=== PATIENT | male | born 1985 | race Caucasian/White ===

== ENCOUNTER 2019-09-19 11:25 | Emergency (ER) | payer OTHER ==
[~2019-09-19] VITALS: Ht 175.3 cm; Wt 86.3 kg
[2019-09-19] MEDS ORDERED: TETRACYCLINE H500 MG PO (11:39)
[2019-09-19] MEDS ORDERED: FLAGYL500 M1 PO (11:39)
[2019-09-19] MEDS ORDERED: OMEPRAZOLE40 MG PO (11:39)
[2019-09-19 12:16] LABS: ABSOLUTE BASOPHILS 0.1 thou/uL (0.0-0.2); ABSOLUTE EOSINOPHILS 0.3 thou/uL (0.0-0.7); ABSOLUTE LYMPHOCYTES 1.7 thou/uL (0.8-5.3); ABSOLUTE MONOCYTES 0.4 thou/uL (0.0-1.2); ABSOLUTE NEUTROPHILS 5.7 thou/uL (1.6-8.1); BASOPHILS 1.2 %; EOSINOPHILS 3.3 %; HEMATOCRIT 39.3 % (42.0-52.0); HEMOGLOBIN 13.7 gm/dL (14.0-18.0); MCH 29.8 pg (26.0-34.0); MCHC 34.8 g/dL (28.0-37.0); MCV 85.6 fL (80.0-100.0); MONOCYTES 4.5 %; MPV 6.9 fl. (7.2-11.1); NUCLEATED RBCS 0 /100WBC; PLATELET COUNT* 296 thou/uL (150-400); RBC 4.59 mil/uL (4.50-6.00); RDW-CV 13.4 % (10.5-14.5); WBC 8.2 thou/uL (4.0-11.0)
[2019-09-19 12:29] LABS: CALCIUM 8.2 mg/dL (8.5-10.1); CREATININE 1.1 mg/dL (0.6-1.3); POTASSIUM 3.4 mmol/L (3.5-5.1)
[2019-09-19 12:30] LABS: APTT 29.4 Seconds (25.0-31.3); INR 1.2; PROTIME 12.2 Seconds (9.20-11.50)
[2019-09-19 12:41] LABS: ALBUMIN 3.8 g/dL (3.4-5.0); TOTAL BILIRUBIN 0.9 mg/dL (<0.1-1.0); TOTAL PROTEIN 7.5 g/dL (6.4-8.2)
[2019-09-19 12:45] LABS: URINE BILIRUBIN NEGATIVE (Negative); URINE BLOOD NEGATIVE (Negative); URINE CLARITY CLEAR; URINE COLOR YELLOW; URINE GLUCOSE-RANDOM NEGATIVE (Negative); URINE KETONES 2+ (Negative); URINE LEUKOCYTES-REFLEX NEGATIVE (Negative); URINE NITRITE-REFLEX NEGATIVE (Negative); URINE PROTEIN NEGATIVE (Negative); URINE UROBILINOGEN 0.2 E.U./dl (0.2-1.0)
--- NOTE | 2019-09-19 13:30 | EKG ---
[place] [address] ELECTROCARDIOGRAM REPORT Name: JL BLAND Room: [facility]#: [id number] Admission: 09/19/19 Attend Phys: Discharge: Date of : 89 Date of Service: 09/19/19 1151 Report #: [id number] THIS REPORT FOR: //name// [facility] ED Test Date: 2019-09-19 Test Time: 11:51:54 Pat Name: JL BLAND Department: Room: Gender: [employer]el [employer]: [facility] : 1985 Requested By: Migue Macias Order Number: [id number] MD: Stiven Bolton Measurements Intervals [place] Rate: 62 P: 41 NE: 121 QRS: 50 QRSD: 93 T: 51 QT: 396 QTc: 402 Interpretive Statements Sinus rhythm No previous ECG available for comparison Electronically Signed On 09-19-2019 13:30:03 CDT by Stiven Bolton [email or web address] <ELECTRONICALLY SIGNED> By: Stiven Bolton MD, [facility] 09/19/19 1330 1151 1151 Stiven Bolton MD, FACC /EPI
[2019-09-19] MEDS ORDERED: AMOXICILLIN 50500 MG PO (13:33)
[2019-09-19 13:50] VITALS: BP 120/70
== END 2019-09-19 13:50 | disposition home or self-care (01) ==
LOC: M.ERS 11:25
PROVIDERS: Family Medicine
DX: R42 Dizziness and giddiness (principal); F41.9 Anxiety disorder, unspecified; J32.9 Chronic sinusitis, unspecified; R11.0 Nausea; H92.01 Otalgia, right ear; Z79.899 Other long term (current) drug therapy; R51 Headache